=== PATIENT | female | born 1985 | race Caucasian/White ===

== ENCOUNTER → 2019-03-17 | Outpatient (REF) | payer MEDICARE, MEDICAID ==
[~2019-03-17] MED LIST: /HYDR1TAB PO; CELE10TA PO; HYDR-3363 PO; TRAZ50TA2 PO; TYLE500T7 PO
== END ==
LOC: M LAB LCGH 13:49
PROVIDERS: ATTEND Obstetrics & Gynecology
DX: Z87.898 Personal history of other specified conditions (principal); Z12.4 Encounter for screening for malignant neoplasm of cervix

== ENCOUNTER 2023-03-18 14:27 | Inpatient (IN) | payer MEDICARE, MEDICAID ==
[~2023-03-18] VITALS: Ht 157.5 cm; Wt 93.0 kg
[2023-03-18] MEDS ORDERED: LACTATED RINGER'S 1000 ML IV STA (17:27)
[2023-03-18] MEDS ORDERED: TRANEXAMIC ACID INJection 1,000 MG in NS 100 ML IV PRN (17:30)
[2023-03-18] MEDS ORDERED: OXYTOCIN DRIP 30 UNITS in IV 1 EA IV PRN (17:30)
[2023-03-18] MEDS ORDERED: CARBOPROST TROMETHAMINE 250 MCG/ML AMP IM PRN (17:30)
[2023-03-18] MEDS ORDERED: OXYTOCIN INJ 10UNITS/ML 1ML VIAL IM PRN (17:30)
[2023-03-18] MEDS ORDERED: LIDOCAINE 1% MDV 20ML VIAL INFIL PRN (17:30)
[2023-03-18 17:38] VITALS: BP 131/89
[2023-03-18] MEDS ORDERED: LABE100T6 PO (17:57)
[2023-03-18] MEDS ORDERED: HOME MED LIST COMPLETE! XX SCH (18:00)
[2023-03-18 18:23] LABS: HEMOGLOBIN 13.1 g/dl (12.0-15.5); MEAN CORPUSCULAR HEMOGLOBIN 29.6 pg (27.0-33.0); MEAN CORPUSCULAR HGB CONC 34.5 g/dl (32.0-36.5); MEAN CORPUSCULAR VOLUME 85.8 fl (80.0-96.0); PLATELET COUNT, AUTOMATED 354 10^3/uL (150-450); RED BLOOD COUNT 4.43 10^6/uL (4.00-5.40); WHITE BLOOD COUNT 15.7 10^3/uL (4.0-10.0)
[2023-03-18] MEDS ORDERED: VALT1TAB PO (18:32)
[2023-03-18 18:42] VITALS: BP 142/91
[2023-03-18 18:44] LABS: URIC ACID 4.3 MG/DL (3.1-7.8)
[2023-03-18 18:46] LABS: LDH LACTATE DEHYDROGENASE 203 U/L (120-246)
[2023-03-18 18:47] LABS: ALT/SGPT 17 U/L (7.0-40); AST/SGOT 15 U/L (<34); BILIRUBIN,TOTAL 0.4 MG/DL (0.3-1.2); CREATININE FOR GFR 0.59 MG/DL (0.55-1.30); GLOMERULAR FILTRATION RATE > 60.0 (>60)
[2023-03-18 20:09] VITALS: BP 110/66
[2023-03-18 20:21] LABS: TOTAL PROTEIN,RANDOM URINE 64.1 MG/DL (0.0-14.0)
[2023-03-18 20:26] LABS: CREATININE,RANDOM URINE 243.5 MG/DL
[2023-03-18 20:28] VITALS: BP 124/69
[2023-03-18] MEDS: LABETALOL 100MG TAB PO SCH (20:30)
[2023-03-18] MEDS: valACYclovir HCL 500 MG TAB PO SCH (21:02)
[2023-03-18] MEDS: miSOPROStol 50MCG 1/2 TABLET PO SCH (21:55)
[2023-03-18 21:56] VITALS: BP 108/59
[2023-03-18 23:53] LABS: GC DNA AMPLIFICATION NEGATIVE (NEGATIVE)
[2023-03-19] VITALS (16 sets, daily range): BP systolic 121–172; BP diastolic 58–89
[2023-03-19] MEDS: miSOPROStol 50MCG 1/2 TABLET PO SCH ×3 (02:31→12:02)
[2023-03-19] MEDS: LABETALOL 100MG TAB PO SCH (08:33)
[2023-03-19] MEDS: valACYclovir HCL 500 MG TAB PO SCH (10:08)
[2023-03-19] MEDS: NICOTINE 21MG/24HR 1 EA TRANSDERMAL TD SCH (12:49)
[2023-03-19] MEDS ORDERED: NALBUPHINE HCL 10 MG/ML 1ML AMP IV ONE (16:40)
[2023-03-19] MEDS ORDERED: PROMETHAZINE 25MG/ML 1ML VIAL IV ONE (16:40)
[2023-03-19] MEDS ORDERED: OXYTOCIN DRIP 30 UNITS in IV 1 EA IV SCH (18:30)
[2023-03-19] MEDS ORDERED: OXYTOCIN DRIP 30 UNITS in IV 1 EA IV ONE (18:35)
[2023-03-19] MEDS ORDERED: RHOGAM 300MCG (1500IU) INJ IM SCH (19:05)
[2023-03-19] MEDS ORDERED: METHYLERGONOVINE MALEATE 0.2 MG TAB PO PRN (19:05)
[2023-03-19] MEDS ORDERED: ACETAMINOPHEN 500 MG TAB PO PRN (19:05)
[2023-03-19] MEDS ORDERED: DOCUSATE SODIUM 100MG CAPSULE PO PRN (19:05)
[2023-03-19] MEDS ORDERED: DIBUCAINE 1% OINTMENT 30GM TOP PRN (19:05)
[2023-03-19] MEDS: NIFEdipine 30MG XL TAB PO SCH (19:17)
[2023-03-20] MEDS: IBUPROFEN 600MG TAB PO PRN ×2 (01:43→11:37)
[2023-03-20 02:00] VITALS: BP 140/83
[2023-03-20 05:45] LABS: HEMATOCRIT 31.7 % (36.0-47.0); MEAN CORPUSCULAR HEMOGLOBIN 29.6 pg (27.0-33.0); MEAN CORPUSCULAR HGB CONC 34.4 g/dl (32.0-36.5); MEAN CORPUSCULAR VOLUME 86.1 fl (80.0-96.0); PLATELET COUNT, AUTOMATED 322 10^3/uL (150-450); RED BLOOD COUNT 3.68 10^6/uL (4.00-5.40); WHITE BLOOD COUNT 16.6 10^3/uL (4.0-10.0)
[2023-03-20 06:00] VITALS: BP 138/93
[2023-03-20 06:02] LABS: HEMOGLOBIN 10.9 g/dl (12.0-15.5)
[2023-03-20 06:08] LABS: ALBUMIN 2.2 G/DL (3.2-5.2); ALKALINE PHOSPHATASE 109 U/L (46-116); ALT/SGPT 13 U/L (7.0-40); AST/SGOT 16 U/L (<34); BILIRUBIN,TOTAL 0.2 MG/DL (0.3-1.2); BLOOD UREA NITROGEN 13 MG/DL (9-23); CALCIUM LEVEL 8.5 MG/DL (8.5-10.1); CARBON DIOXIDE LEVEL 22 MMOL/L (20-31); CHLORIDE LEVEL 109 MMOL/L (98-107); CREATININE FOR GFR 0.62 MG/DL (0.55-1.30); GLOMERULAR FILTRATION RATE > 60.0 (>60); GLUCOSE, FASTING 76 MG/DL (60-100); POTASSIUM SERUM 3.9 MMOL/L (3.5-5.1); SODIUM LEVEL 137 MMOL/L (136-145); TOTAL PROTEIN 5.2 G/DL (5.7-8.2)
[2023-03-20] MEDS: NICOTINE 21MG/24HR 1 EA TRANSDERMAL TD SCH ×2 (08:15→14:24)
[2023-03-20 08:16] VITALS: BP 138/93
[2023-03-20] MEDS: NIFEdipine 30MG XL TAB PO SCH (08:16)
[2023-03-20] MEDS ORDERED: PRENATAL VITAMINS CHEWABLE TABLET PO SCH (09:00)
[2023-03-20 10:00] VITALS: BP 146/70
[2023-03-20 14:00] VITALS: BP 146/74
[2023-03-20 18:00] VITALS: BP 141/86
[2023-03-21] MEDS ORDERED: MEASLES,MUMPS,RUBELLA VACCINE INJ (MMR-II) SC.IMMUN ONE (09:00)
== END 2023-03-20 22:10 | disposition home or self-care (01) | DRG 806 ==
LOC: M LDI 17:10 → M OBS 03-19 20:40
PROVIDERS: ADMIT Advanced Practice Midwife; ATTEND Obstetrics & Gynecology
PROC: 3E0P7GC Introduction of Other Therapeutic Substance into Female Reproductive, Via Natural or Artificial Opening (ICD-10-PCS; 2023-03-18)
PROC: 10E0XZZ Delivery of Products of Conception, External Approach (ICD-10-PCS; principal; 2023-03-19)
DX: O13.4 Gestational [pregnancy-induced] hypertension without significant proteinuria, complicating childbirth (principal); Z37.0 Single live birth; O98.32 Other infections with a predominantly sexual mode of transmission complicating childbirth; Z3A.37 37 weeks gestation of pregnancy; O99.334 Smoking (tobacco) complicating childbirth; F17.210 Nicotine dependence, cigarettes, uncomplicated; A60.09 Herpesviral infection of other urogenital tract; O69.81X0 Labor and delivery complicated by cord around neck, without compression, not applicable or unspecified; O70.0 First degree perineal laceration during delivery